=== PATIENT | female | born 1970 ===

== ENCOUNTER 2018-06-02 07:27 | Outpatient (CLI) | payer BC ==
--- NOTE | 2018-06-02 11:51 | MRI ---
BILATERAL BREAST MRI: Comparison: Ultrasound from outside hospital, 03-31-18, 07-23-18. Mammograms from outside hospital 12-1 0-18, 18. Technique: Multiplanar, multisequence MRI images were obtained of the bilateral breasts without and w ith IV contrast. FINDINGS: Heterogeneously dense breast parenchyma is seen. Mild background parenchymal enhancement is present. There are multiple nonenhancing foci of high T2 signal in both breasts which represent cysts. These m ost likely represent the abnormalities seen on ultrasound. No suspicious area of enhancement is seen in either breast. No solid or suspicious mass is appreciated. A 6 mm well circumscribed danica demonstrating high T2 signal in the upper outer aspect of the left br east likely represents an inframamillary lymph node. No enlarged axillary lymph nodes are seen. No internal mamillary lymph nodes are identified. The visu alized osseous structures are unremarkable. The visualized anterior liver is unremarkable. IMPRESSION: BIRADS category 2 - benign findings. Annual screening mammography is recommended. POS: [facility]
[2018-06-02] MEDS ORDERED: Gadobenate Dimeglumine 529 MG/1 ML (20ML VIAL) ONE (13:16)
== END 2018-06-02 07:28 | disposition home or self-care (01) ==
LOC: BICMRI 07:27
PROVIDERS: ATTEND Family Medicine
DX: R92.8 Other abnormal and inconclusive findings on diagnostic imaging of breast (principal)
CPT/HCPCS: A9577; C8908